=== PATIENT | female | born 1930 | race Caucasian/White ===

== ENCOUNTER 2016-10-21 19:16 | Emergency (ER) | payer MEDICARE, OTHER ==
[~2016-10-21 19:16] MED LIST: ASPIR 8181 M1 PO; BIOTIN0.5 GM; SIMVASTATIN20 M1 PO; TIMOPTIC 0.5%1 EACH OP; VIT D
[2016-10-21] MEDS ORDERED: EXCEDRIN EXTRA1 EAC4 PO (20:47)
[2016-10-21] MEDS ORDERED: BIOTIN1 M2 PO (20:47)
[2016-10-21] MEDS ORDERED: STOOL SOFTENER1 EAC4 PO (20:48)
== END 2016-10-21 21:54 ==
LOC: EDMED 19:16
DX: S80.01XA Contusion of right knee, initial encounter (principal); M25.461 Effusion, right knee; H40.9 Unspecified glaucoma; Z23 Encounter for immunization; W18.30XA Fall on same level, unspecified, initial encounter; Y93.01 Activity, walking, marching and hiking; Y92.410 Unspecified street and highway as the place of occurrence of the external cause; Y99.8 Other external cause status